=== PATIENT | female | born 1980 | race Caucasian/White ===

== ENCOUNTER 2023-07-10 11:43 | Outpatient (CLI) | payer OTHER ==
[~2023-07-10] VITALS: Ht 172.7 cm; Wt 80.3 kg
[2023-07-10 11:48] VITALS: BP 116/74; PULSE 66; TEMP 98.3
[2023-07-10] MEDS ORDERED: ZOLOFT 100MG100 MG PO (11:52)
[2023-07-10] MEDS ORDERED: PRENATAL PO (11:53)
--- NOTE | 2023-07-10 14:24 | NUR ---
PT TOLERATED IV FLUIDS WELL AND VS REMAINED WITHIN NORMAL LIMITS. PT STATED THAT SHE STILL FELT NAUSEATED FOLLOWING THE INFUSION BUT WAS ABLE TO AMBULATE INDEPENDENTLY TO MAIN LOBBY. IV WAS DISCONTINUED AND PT WAS FREE FROM CONCERNS AND COMPLAINTS AT TIME OF DISCHARGE.
== END 2023-07-10 14:26 | disposition home or self-care (01) ==
LOC: EUO 11:43
DX: O09.519 Supervision of elderly primigravida, unspecified trimester (principal); O22.00 Varicose veins of lower extremity in pregnancy, unspecified trimester; O99.340 Other mental disorders complicating pregnancy, unspecified trimester; E78.00 Pure hypercholesterolemia, unspecified; G25.81 Restless legs syndrome; R51.9 Headache, unspecified; K21.9 Gastro-esophageal reflux disease without esophagitis; Z3A.00 Weeks of gestation of pregnancy not specified
CPT/HCPCS: J7030

== ENCOUNTER 2023-12-12 13:48 | Outpatient (CLI) | payer OTHER ==
[~2023-12-12] VITALS: Ht 172.7 cm; Wt 89.1 kg
[~2023-12-12 13:48] MED LIST: PRENATAL PO; ZOLOFT 100MG100 MG PO
--- NOTE | 2023-12-12 14:00 | NUR ---
PT AMBULATORY TO UNIT WITH SPOUSE AND CHILD. PT REPORTS CRAMPING IN STOMACH EVERY 2 HOURS THROUGH THE NIGHT. DID NOT FEEL LIKE TREVOR WYNNE CTX BUT FELT HER ENTIRE STOMACH TIGHTEN, FOLLOWED BY REFLUX AND VOMIT SENSATION. REPORTS NO LOF, NO VAGINAL BLEEDING, POSITIVE MOVEMENT, OCCASIONAL CTX. REPORTED DIFFICULTY BREATHING THROUGHOUT THE NIGHT WELL. HAD A COLD LAST WEEK, RECEIVED IV FLUIDS TWICE AND LAST MONTH AND FELT MUCH BETTER. PT REPORTS DRINKING 30-60OZ OF WATER A DAY. DISCUSSED INCREASING THIS. PT AGREES. WILL SVE AT THIS TIME CL/TH/HIGH. WILL REPORT TO
[2023-12-12] MEDS ORDERED: LR 1,000 ML IV PRN (14:15)
[2023-12-12] MEDS ORDERED: ASPIRIN 81M81 MG/TA2 PO (14:41)
[2023-12-12 14:50] VITALS: BP 121/78; PULSE 95; TEMP 97.9
--- NOTE | 2023-12-12 15:22 | NUR ---
TOUR OF UNIT GIVEN TO PT BEFORE DC. PT AGREES TO DC PLAN. WILL CALL PROVIDER OR HOSPITAL WITH ANY QUESITONS OR CONCERNS.
== END 2023-12-12 15:15 | disposition home or self-care (01) ==
LOC: LDRO 13:48 → LDR 14:03 → LDRO 15:15
DX: Z34.93 Encounter for supervision of normal pregnancy, unspecified, third trimester (principal); Z3A.30 30 weeks gestation of pregnancy
CPT/HCPCS: OP

== ENCOUNTER → 2024-02-24 | Outpatient (CLI) | payer OTHER ==
[~2024-02-24] MED LIST changes: +ASPIRIN 81M81 MG/TA2 PO; +IBU800 M1 PO
== END ==
LOC: COL.RAD 14:01
DX: M79.605 Pain in left leg (principal)

== ENCOUNTER → 2024-07-29 | Outpatient (CLI) | payer OTHER | LOC: MC.RAD 12:46 | DX: Z12.31 Encounter for screening mammogram for malignant neoplasm of breast (principal); N64.89 Other specified disorders of breast ==